=== PATIENT | male | born 1965 | race Two or more races ===

== ENCOUNTER 2021-10-02 05:18 | Emergency (ER) | payer MEDICAID, OTHER ==
[~2021-10-02] VITALS: Ht 160 cm; Wt 56.2 kg
[2021-10-02 06:21] LABS: Basophils # (auto) 0.1 10 ^3/uL (0-0.2); Basophils % (auto) 1.1 % (0.0-2.0); Eosinophils # (auto) 0.2 10 ^3/uL (0-0.8); Eosinophils % (auto) 3.8 % (0.0-7.0); Hematocrit 27.7 % (41.0-53.0); Hemoglobin 9.7 g/dL (13.5-17.5); Lymphocytes # (auto) 0.8 10 ^3/uL (0.4-5.4); Lymphocytes % (auto) 14.6 % (10.0-50.0); Mean Corpuscular Hemoglobin 33.1 pg (28.0-32.0); Mean Corpuscular Hgb Conc. 34.9 g/dL (32.0-36.0); Mean Corpuscular Volume 94.7 fL (80.0-100.0); Monocytes # (auto) 0.5 10 ^3/uL (0-1.3); Monocytes % (auto) 8.7 % (0.0-12.0); Neutrophils # (auto) 3.9 10 ^3/uL (1.6-8.6); Neutrophils % (auto) 71.8 % (37.0-80.0); Red Blood Cells 2.92 10^6/uL (4.5-5.90); Red Cell Distribution Width 13.3 % (11.8-14.3); White Blood Cell 5.4 10^3/uL (4.4-10.8)
[2021-10-02] MEDS ORDERED: SODIUM CHLORIDE 0.9% 500 ML IV ONE (06:30)
[2021-10-02 06:56] LABS: Anion Gap 12 (5-15); Carbon Dioxide 28 mmol/L (21-32); Chloride 93 mmol/L (98-107); Sodium 133 mmol/L (136-145)
[2021-10-02 06:57] LABS: Alanine Aminotransferase 17 U/L (16-61); Albumin 3.4 g/dL (3.4-5.0); Alkaline Phosphatase 88 U/L (45-117); Aspartate Aminotransferase 15 U/L (15-37); BUN/Creatinine Ratio 9.7; Bilirubin, Total 0.4 mg/dL (0.2-1.0); Calcium 8.8 mg/dL (8.5-10.1); GFR African American 9 mL/min; GFR Non-African American 7 mL/min; Glucose 173 mg/dL (74-106); Total Protein 6.5 g/dL (6.4-8.2)
[2021-10-02 06:59] LABS: Blood Urea Nitrogen 80 mg/dL (7-18)
[2021-10-02 11:13] VITALS: BP 170/76
== END 2021-10-02 11:15 | disposition home or self-care (01) ==
LOC: ER 05:18 → EDBD 05:18 → ER 11:15
DX: T80.90XA Unspecified complication following infusion and therapeutic injection, initial encounter (principal); I95.9 Hypotension, unspecified; N18.9 Chronic kidney disease, unspecified; R94.31 Abnormal electrocardiogram [ECG] [EKG]; Z20.822 Contact with and (suspected) exposure to COVID-19
CPT/HCPCS: 36415; 71045; 80053; 83605; 83690; 83880; 84484; 85025; 87426; 93005; 96360; 99285; J7040